=== PATIENT | male | born 1955 | race Caucasian/White ===

== ENCOUNTER 2022-02-21 12:00 | Inpatient (IN) | payer MEDICARE ==
[~2022-02-21] VITALS: Ht 167.6 cm; Wt 82.2 kg
[2022-02-21] VITALS (11 sets, daily range): BP systolic 116–175; BP diastolic 48–90
--- NOTE | 2022-02-21 12:04 | NUR ---
PATIENT ESCORTED TO ROOM VIA WHEELCHAIR AND PROVIDER NOTIFIED
[2022-02-21 12:42] LABS: BASO% 0.1 % (0-3); HEMATOCRIT 44.3 % (39.0-50.0); HEMOGLOBIN 14.8 g/dl (14.0-18.0); IMMATURE GRANULOCYTES 0.3 % (0.0-5.0); LYMPH% 9.2 % (15-41); MEAN CELL VOLUME 101.6 fL CALC (80.0-100.0); MEAN CORPUSCULAR HGB 33.9 pG CALC (26.0-32.0); MEAN CORPUSCULAR HGB CONC 33.4 g/dL CAL (32.0-36.0); MONO% 15.6 % (2-13); NEUT# 10.55 thou/uL (1.82-7.42); NEUT% 74.8 % (42-76); RED BLOOD COUNT 4.36 mill/uL (4.70-6.10)
[2022-02-21 12:47] LABS: ALBUMIN 4.2 g/dL (3.2-5.0); ALKALINE PHOSPHATASE 158 u/l (38-126); ANION GAP 13 (6-22 (CALC)); BILIRUBIN, TOTAL 0.9 mg/dL (0.0-1.4); BUN 19 mg/dL (8-23); BUN/CREATININE RATIO 16 (12-20 (CALC)); CARBON DIOXIDE 29 mmol/l (22-30); CHLORIDE 99 mmol/l (95-108); CREATININE 1.2 mg/dL (0.7-1.3); GFR FOR AFR.AMER. > 60 ML/MIN (>=60 (CALC)); GFR OTHER RACES > 60 ML/MIN (>=60 (CALC)); POTASSIUM 4.4 mmol/l (3.5-5.1); SGOT/AST 44 u/l (19-48); SODIUM 137 mmol/l (137-146); TOTAL PROTEIN 8.3 g/dL (6.3-8.2)
--- NOTE | 2022-02-21 12:57 | NUR ---
RESTING QUIETLY AT THIS TIME, REPORTS MARKED RELIEF OF SYMPTOMS, NO C/O PAIN OR DISCOMFORT, NO S/S OF DISTRESS NOTED, RESPIRATIONS EVEN AND UNLABORED ON O2@2L VIA NC AFTER NEB TREATMENT.
[2022-02-21 13:16] LABS: URINE BLOOD DIPSTICK LARGE (NEGATIVE); URINE COLOR YELLOW; URINE GLUCOSE - DIPSTICK NEGATIVE (NEGATIVE); URINE KETONE NEGATIVE (NEGATIVE); URINE LEUK ESTERASE NEGATIVE (NEGATIVE); URINE NITRITE - DIPSTICK NEGATIVE (Negative); URINE PH 5.5 (4.5-8.0); URINE PROTEIN - DIPSTICK 100 mg/dL (NEG-TRACE); URINE SPECIFIC GRAVITY >=1.030
[2022-02-21 13:22] LABS: URINE BILIRUBIN - DIPSTICK NEGATIVE (NEGATIVE)
[2022-02-21 13:31] LABS: URINE SQUAMOUS EPITHELIAL CELL FEW EPI/hpf (0-FEW); URINE TRANSITIONAL EPI. CELLS FEW hpf
[2022-02-21 13:32] LABS: URINE COARSE GRANULAR CAST FEW lpf; URINE HYALINE CAST MODERATE lpf (NONE-RARE); URINE RENAL EPITHELIAL CELLS FEW hpf
--- NOTE | 2022-02-21 14:01 | NUR ---
PATIENT AWAITING CTA RESULTS
--- NOTE | 2022-02-21 15:13 | NUR ---
ASSISTED PATIENT TO RESTROOM. ABLE TO AMBULATE STEADY.
--- NOTE | 2022-02-21 16:53 | NUR ---
BEDSIDE REPORT GIVEN TO NORMA. PATIENT ABLE TO TRANSFER FROM WHEELCHAIR TO BED WITHOUT DIFFICULTY.
--- NOTE | 2022-02-21 18:11 | NUR ---
PT ASSESSED. VS STABLE. NO C/O CP. SOB RELIEVED WITH O2. NO S/S OF DISTRESS. BED IN LOW, LOCKED POSITION. CALL HERMAN WITHIN REACH. WILL CONTINUE TO MONITOR.
--- NOTE | 2022-02-21 20:04 | NUR ---
SPO2 @ 2LPM 87-88% INCREASED O2 @ 3LPM CURRENT SPO2 AT 92-93%.
[2022-02-21] MEDS ORDERED: TRELEGY ELLIPTA1 AER (20:07)
--- NOTE | 2022-02-21 22:55 | NUR ---
RECEIVED REPORT FROM DAY NURSE PATIENT AWAKE, SITTIG IN BED, HAS SALINE LOCK ON LAC PATENT FLUSHES WELL, HOOKED ON O2 @ 2LPM VIA NC, SPO2 88 % INCREASED TO 3LPM VIA NC MAINTAINED AT 92-93%, REMAINS ON TELEMETRY, LUNG SOUNDS CLEAR, WHEEZING NOTED ON RLL, PRODUCTIVE COUGH SCANT AMOUNT GRAYISH SECRETION THICK,CALL LIGHT IN REACH.
[2022-02-22] VITALS (7 sets, daily range): BP systolic 104–150; BP diastolic 44–72
[2022-02-22 01:25] LABS: HEMATOCRIT 41.3 % (39.0-50.0); HEMOGLOBIN 13.6 g/dl (14.0-18.0); MEAN CORPUSCULAR HGB 33.9 pG CALC (26.0-32.0); MEAN CORPUSCULAR HGB CONC 32.9 g/dL CAL (32.0-36.0); RED BLOOD COUNT 4.01 mill/uL (4.70-6.10); RED CELL DISTRI WIDTH 13.1 % (11.5-15.5)
[2022-02-22 01:45] LABS: ALKALINE PHOSPHATASE 129 u/l (38-126); ANION GAP 11 (6-22 (CALC)); BUN 25 mg/dL (8-23); BUN/CREATININE RATIO 22 (12-20 (CALC)); CARBON DIOXIDE 32 mmol/l (22-30); CHLORIDE 102 mmol/l (95-108); CREATININE 1.1 mg/dL (0.7-1.3); GFR FOR AFR.AMER. > 60 ML/MIN (>=60 (CALC)); GFR OTHER RACES > 60 ML/MIN (>=60 (CALC)); MAGNESIUM 2.3 mg/dL (1.6-2.3); SGOT/AST 40 u/l (19-48); SODIUM 140 mmol/l (137-146)
[2022-02-22 01:49] LABS: ALBUMIN 3.3 g/dL (3.2-5.0); BILIRUBIN, TOTAL 0.2 mg/dL (0.0-1.4); TOTAL PROTEIN 6.3 g/dL (6.3-8.2)
--- NOTE | 2022-02-22 04:10 | NUR ---
PATIENT RESTING WITH EYS CLOSED, NOT IN RESPIARTORY DISTRESS REMAINS ON O2 @ 3LPM VIA NC, CALL LIGHT IN REACH.
--- NOTE | 2022-02-22 11:01 | NUR ---
PT OOB TO BR THIS MORNING, BECAME WHEEZY WITH THE EFFORT. RESP THERAPIST TRAVIS AT BEDSIDE TO PROVIDE RESP TX.
--- NOTE | 2022-02-22 13:52 | NUR ---
PT AT REST IN THE BED, NO DISTRESS, NO COMPLAINTS. AT BEDSIDE. PT IN NO DISTRESS, CONTINUES AT 3 LPM NC.
--- NOTE | 2022-02-22 16:18 | NUR ---
PT REMAINS IN ROOM, ADEQUATE OXYGENATION HE AMBULATES TO BR. ABX GIVEN ORDERED.
--- NOTE | 2022-02-22 20:00 | NUR ---
RECEIVED REPORT FROM NURSE LAWSON, PATIENT ALERT ORIENTED ABLE TO MAKE NEEDS KNOWN, HOOKED ON O2 @ 3LPM VIA NC, WHEEEZING NOTED BILAT LUNG ZHU, PRODUCTIVE COUGH SCANT AMOUNT [place] IN COLOR, ACTIVE BOWEL SOUNDS, LBM 02/21, CALL LIGHT IN REACH.
--- NOTE | 2022-02-23 | NUR ---
PATIENT RESTING IN BED EYES CLOSED, REMAINS ON O2 AT 3LPM BREATHING UNLABORED, CALL LIGHT IN REACH.
[2022-02-23 04:00] VITALS: BP 115/41
--- NOTE | 2022-02-23 04:30 | NUR ---
PREM KEITH REQUESTED FOR HIS BREATHING TREATMENT, RT IN ROOM, PATEINT REMAINS ON O2 @ 3LPM VIA NC, CALL LIGHT IN REACH.
[2022-02-23 06:32] VITALS: BP 109/45
--- NOTE | 2022-02-23 07:00 | NUR ---
PT IN ROOM SLEEPING, NO SIGNS OF DISTRESS. EASILY AROUSED, BREATHING EVEN AND NON LABORED WHILE SLEEPING WITH OXYGEN THERAPY (3L VIA NC) IN PLACE. ALERT AND ORIENTATED X3. ASSESSED AT BEDSIDE. IV SITE PATENT, IV FLUIDS RUNNING AT THIS TIME ORDERED. DENIES ANY PAIN OR DISCOMFORT AT THIS TIME. ENCOURAGED TO USE CALL LIGHT NEEDED. ALL SAFETY PRECAUTIONS IN PLACE AT THIS TIME
[2022-02-23 10:26] VITALS: BP 132/47
--- NOTE | 2022-02-23 11:15 | NUR ---
ASSESSED AT BEDSIDE, PT BREATHING SLIGHTY LABORED WITH OXYGEN THERAPY IN PLACE. OXYGEN CANNOT BE TITRATED. PT DID RECIEVE A SHOWER. IVF NOT RUNNING AT THIS TIME. MD IN ROOM AT THIS TIME. ENCOURAGED TO USE CALL LIGHT. ALL SAFETY PRECAUTIONS IN PLACE AT THIS TIME
[2022-02-23 13:27] LABS: HEMATOCRIT 39.5 % (39.0-50.0); HEMOGLOBIN 12.8 g/dl (14.0-18.0); IMMATURE GRANULOCYTES 1.3 % (0.0-5.0); MEAN CELL VOLUME 105.1 fL CALC (80.0-100.0); MEAN CORPUSCULAR HGB CONC 32.4 g/dL CAL (32.0-36.0); MONO% 4.3 % (2-13); NEUT# 11.16 thou/uL (1.82-7.42); NEUT% 84.4 % (42-76); RED BLOOD COUNT 3.76 mill/uL (4.70-6.10); RED CELL DISTRI WIDTH 13.6 % (11.5-15.5)
[2022-02-23 13:38] LABS: ALBUMIN 2.8 g/dL (3.2-5.0); ALKALINE PHOSPHATASE 100 u/l (38-126); ANION GAP 5 (6-22 (CALC)); BUN 27 mg/dL (8-23); BUN/CREATININE RATIO 26 (12-20 (CALC)); CARBON DIOXIDE 34 mmol/l (22-30); CHLORIDE 106 mmol/l (95-108); CREATININE 1.1 mg/dL (0.7-1.3); GFR FOR AFR.AMER. > 60 ML/MIN (>=60 (CALC)); GFR OTHER RACES > 60 ML/MIN (>=60 (CALC)); POTASSIUM 4.9 mmol/l (3.5-5.1); SGOT/AST 55 u/l (19-48); SODIUM 140 mmol/l (137-146); TOTAL PROTEIN 5.6 g/dL (6.3-8.2)
--- NOTE | 2022-02-23 16:00 | NUR ---
ASSESSED PT AT BEDSIDE. A/O X3. BREATHING REMAINS THE SAME, WITH OXYGEN THERAPY REMAINING AT 3L. DENIES PAIN OR DISCOMFORT. ENCOURAGED TO USE CALL LIGHT NEEDED. ALL SAFETY PRECAUTIONS IN PLACE AT THIS TIME.
[2022-02-23 16:10] VITALS: BP 138/56
[2022-02-23 18:59] VITALS: BP 138/56
--- NOTE | 2022-02-23 19:50 | NUR ---
PT IN BED WATCHING TV DENIES PAIN OR DISCOMFORT. NO S/S OF DISTRESS NOTED. CALL LIGHT IN REACH.
--- NOTE | 2022-02-23 23:25 | NUR ---
PT IN BED RESTING WITH EYES CLOSED BREATHING EVEN AND UNLABORED. PT AWAKEN TO PERFORM ASSESMENT. PT DENIES PAIN OR DISCOMFORT. NO S/S OF DISTRESS NOTED. CALL LIGHT IN REACH AND BED IN LOWEST POSITION.
[2022-02-24 00:08] VITALS: BP 127/46
[2022-02-24 04:21] VITALS: BP 128/23
--- NOTE | 2022-02-24 04:30 | NUR ---
PT IN BED RESTING WITH EYES CLSOED BREATHING EVEN AND UNLABORED. NO S/S OF DISTRESS NORED. CALL LIGHT IN REACH AND BED IN LOWEST POSITION.
[2022-02-24 07:27] VITALS: BP 125/48
--- NOTE | 2022-02-24 07:56 | NUR ---
PT RESTING IN LOW FOWLERS POSITION. PT A/O ASSESSMENT AND VS COMPLETED. HEART MONITOR IN PLACE RESPIRAITONS ON 3L OF OXYGEN. PT IV SITE NOTED TO LAC S.L PT DENIES ADDITIONAL NEEDS OTHER THAN BREAKFAST TRAY. PT TRAY PROVIDED PER DIETARY. PT CALL LIGHT IN REACH SAFETY PRECAUTIONS IN PLACE
[2022-02-24 10:50] VITALS: BP 127/53
--- NOTE | 2022-02-24 12:10 | NUR ---
PT WALK TEST COMPLETED. PT NEEDS TO GO HOME ON OXYGEN . CASE MANAGEMENT STATED FEW HOURS FOR OXYGEN TO BE DELIVERED.
[2022-02-24] MEDS ORDERED: PREDNISONE50 MG PO (13:19)
[2022-02-24 14:36] LABS: BASO% 0.1 % (0-3); HEMATOCRIT 42.4 % (39.0-50.0); HEMOGLOBIN 13.7 g/dl (14.0-18.0); IMMATURE GRANULOCYTES 2.3 % (0.0-5.0); LYMPH% 13.4 % (15-41); MEAN CELL VOLUME 104.4 fL CALC (80.0-100.0); MEAN CORPUSCULAR HGB 33.7 pG CALC (26.0-32.0); MEAN CORPUSCULAR HGB CONC 32.3 g/dL CAL (32.0-36.0); MONO% 6.6 % (2-13); NEUT# 10.96 thou/uL (1.82-7.42); NEUT% 77.6 % (42-76); RED BLOOD COUNT 4.06 mill/uL (4.70-6.10); RED CELL DISTRI WIDTH 13.5 % (11.5-15.5)
[2022-02-24 15:05] VITALS: BP 168/65
[2022-02-24 15:11] LABS: ALBUMIN 3.1 g/dL (3.2-5.0); ALKALINE PHOSPHATASE 99 u/l (38-126); ANION GAP 8 (6-22 (CALC)); BUN 27 mg/dL (8-23); BUN/CREATININE RATIO 23 (12-20 (CALC)); CARBON DIOXIDE 33 mmol/l (22-30); CHLORIDE 102 mmol/l (95-108); CREATININE 1.2 mg/dL (0.7-1.3); GFR FOR AFR.AMER. > 60 ML/MIN (>=60 (CALC)); GFR OTHER RACES > 60 ML/MIN (>=60 (CALC)); SGOT/AST 39 u/l (19-48); SODIUM 139 mmol/l (137-146); TOTAL PROTEIN 5.9 g/dL (6.3-8.2)
[2022-02-24 15:12] LABS: BILIRUBIN, TOTAL 0.2 mg/dL (0.0-1.4)
[2022-02-24 15:48] VITALS: BP 148/65
--- NOTE | 2022-02-24 15:51 | NUR ---
PT TO BE DC PT OXYGEN DELIVERED. PT AWARE . ANTIBOTIC CURRENTLY INFUSING. RFA 22 G.
--- NOTE | 2022-02-24 16:50 | NUR ---
Discharge instructions given. Patient verbalizes understanding of same. Discharged in stable condition via Ambulatory to Home with . All belongings sent with pt. IV REMOVED TELE REMOVED ER INFORMED
== END 2022-02-24 18:11 | disposition home or self-care (01) | DRG 193 ==
LOC: ED 12:00 → ED-I 15:00 → ED 15:18 → MS2 15:19
PROVIDERS: Family Medicine; Internal Medicine; ADMIT Internal Medicine; ATTEND Internal Medicine
DX: J18.9 Pneumonia, unspecified organism (principal); J96.01 Acute respiratory failure with hypoxia; J44.0 Chronic obstructive pulmonary disease with (acute) lower respiratory infection; J44.1 Chronic obstructive pulmonary disease with (acute) exacerbation; I48.91 Unspecified atrial fibrillation; F17.210 Nicotine dependence, cigarettes, uncomplicated; Z20.822 Contact with and (suspected) exposure to COVID-19
CPT/HCPCS: J1650; Q9967